=== PATIENT | female | born 1985 | race Caucasian/White ===

== ENCOUNTER 2023-02-05 16:45 | Outpatient (CLI) | payer BC, SELFPAY ==
--- NOTE | 2023-02-05 17:00 | CRLHL7_ITS ---
For Patients: As a result of the Century Cures Act, medical imaging exams and procedure reports are released immediately into your electronic medical record. You may view this report before your referring provider. If you have questions, please contact your health care provider. CLINICAL HISTORY: CHECK IUD PLACEMENT TECHNIQUE: 2D payne scale and color Doppler images were acquired of the pelvis using a transvaginal approach. FINDINGS: Intramural fibroid is present within the uterine fundus measuring 3.5 x 2.5 x 3.6 cm. The uterus measures 8.0 x 5.7 x 6.4 cm. The endometrial lining measures 8 mm in thickness. IUD is present within the endometrial canal. The ovaries are not visualized. There are no suspicious fluid collections within the cul-de-sac. IMPRESSION: Normal position of the intrauterine device within the endometrial canal. Uterine fibroid measuring 3.5 x 2.5 x 3.6 cm. Dictated by Te Mancia MD @ 02/06/2023 8:53:46 AM (Electronically Signed)
== END 2023-02-05 16:46 | disposition home or self-care (01) ==
LOC: US 16:46
PROVIDERS: PCP Surgery; Visit Provider Obstetrics & Gynecology
DX: Z30.431 Encounter for routine checking of intrauterine contraceptive device (principal); D25.9 Leiomyoma of uterus, unspecified
CPT/HCPCS: 76830